=== PATIENT | female | born 1950 | race Caucasian/White ===

== ENCOUNTER → 2017-11-28 | Outpatient (CLI) | payer OTHER, BC | LOC: BRMIMAGING 14:38 | PROVIDERS: ATTEND Internal Medicine | DX: Z12.31 Encounter for screening mammogram for malignant neoplasm of breast (principal) ==

== ENCOUNTER → 2018-12-04 | Outpatient (CLI) | payer OTHER, BC | LOC: BRMIMAGING 11:23 | PROVIDERS: ATTEND Internal Medicine | DX: Z12.31 Encounter for screening mammogram for malignant neoplasm of breast (principal) ==

== ENCOUNTER 2019-01-19 19:37 | Emergency (ER) | payer OTHER, BC ==
[2019-01-20 00:15] VITALS: BP 127/84
--- NOTE | 2019-01-20 00:15 | EDPHY ---
H & P Stated Complaint: Cold symptoms, fatigue, R ear pain x 1-2 weeks Time Seen by Provider: 01/19/19 20:33 HPI/ROS: CHIEF COMPLAINT: Cough and run down all week, dry cough HISTORY OF PRESENT ILLNESS: 68-year-old female with known history of diabetes has had a dry cough for approximately 1 week. The daughter who is my interpreter deaf does not believe she has had the influenza vaccination. There has been quite a few people coming and going there is no quite a certainty as to whether she has been exposed to anything or not. There is a 4-year-old grandchild at home but she is feeling well without any symptoms. With this cough she feeling somewhat run down but is not had a fever that the family has been able to ascertain however they did not check. Strictly tactile in nature. The been no nausea vomiting or diarrhea. She has no chest pain or shortness of breath or phlegm. She is here today as she is quite run down and was not getting better. Evidently she has recurring fever blisters to the left side of the lip, just left of midline. This is been there for some 7 days REVIEW OF SYSTEMS: Constitutional: No fever, no chills. Eyes: No discharge ENT: No sore throat. Cardiovascular: No chest pain, no palpitations. Respiratory: See above Gastrointestinal: No Nausea, vomiting, abdominal pain or diarrhea Genitourinary: No hematuria or frequency. Musculoskeletal: No back pain. Skin: No rashes. Neurological: No headache. A 10 system review of systems was performed and is negative except for the noted findings in the HPI. Source: Patient Exam Limitations: Language barrier - Personal History Current Tetanus/Diphtheria Vaccine: Yes Current Tetanus Diphtheria and Acellular Pertussis (TDAP): Yes Tetanus Vaccine Date: unsure - Medical/Surgical History Hx Asthma: No Hx Chronic Respiratory Disease: No Hx Diabetes: Yes Hx Cardiac Disease: No Hx Renal Disease: No Hx Cirrhosis: No Hx Alcoholism: No Hx HIV/AIDS: No Hx Splenectomy or Spleen Trauma: No Other PMH: Type II DM, L knee sx ~2014 - Social History Smoking Status: Never smoked Alcohol Use: None Drug Use: None - Physical Exam Exam: General Appearance: Alert, no distress. Afebrile. Normal phonation. No respiratory distress. Eyes: Pupils equal and round no pallor or injection. No icterus ENT, Mouth: Mucous membranes slightly dry Pharynx without erythema or exudate. TM Clear. There is a crack from the old fever blister on the left side of the lip. There is a 2 cm mass present on the right that is compatible with a note however is smooth and mobile without specific tenderness. It is notably much larger than the rest and requires follow-up as I told the family Neck: Supple. No JVD. Trachea in midline. Respiratory: There are no retractions, lungs are clear to auscultation. Good aeration. Cardiovascular: Regular rate and rhythm. No murmur Abdomen: Soft and nontender, no masses, bowel sounds normal. Neurological: Ox3. No motor weakness. Sensation intact. Gait nl. Skin: Warm and dry, no rashes. Musculoskeletal: No joint swelling. Extremities: No edema. Homans sign negative. No cords. Psychiatric: Normal affect. Patient is oriented X 3. There is no agitation Constitutional: Initial Vital Signs Temperature (C) 37.1 C 01/19/19 19:51 Heart Rate 90 01/19/19 19:51 Respiratory Rate 18 01/19/19 19:51 Blood Pressure 135/80 H 01/19/19 19:51 O2 Delivery Mode Room Air Allergies/Adverse Reactions: No Known Allergies Allergy (Verified 01/19/19 20:13) Home Medications: Medication Instructions Recorded Multivitamins [Multivitamin (*)] 1 each PO DAILY 05/23/14 metFORMIN HCL [Glucophage 500 mg 500 mg PO DAILY@18 #0 tab 05/24/14 (*)] Medical Decision Making - Diagnostics EKG Interpretation: EKG: Interpreted by me contemporaneously. Rhythm: Normal sinus rhythm. Heart rate 78 QTc 456 QRS: normal STT segment: Mild ST elevation V2 through V5 3 compatible with early repolarization. TN intervals depressed but no other signs to suggest pericarditis T Waves: See above Q waves none Summary: Equivocal EKG. As she segment elevation verses earlier palsy glass V2 through V3. There is also TN interval depression seen in V2 and V3. ED Course/Re-evaluation: The patient was remarkably well for someone has been sick for a week with dry cough. As she did not have the seasonal influenza vaccination, we tested her for influenza, it came back positive for A , the predominant strain we have seen this year. However I continue the workup in view of the EKG changes and her age. Certainly the presentation of fatigue and a diabetic might be underlying coronary disease thus we did check the troponin levels which were normal as noted below as well as evidence for diabetic stability which indeed was the case. The chest x-ray was compatible with chronic changes as well as atelectasis but did not show any signs of CHF. What seemed to be prominence of the zachariah turned out to be granulomatous changes as interpreted by the radiologist. Laboratory studies included: WBC normal at 7 Hemoglobin low at 11.1 however that is her norm. Creatinine is bumped up from 0.6 to 0.9 thus the family be encouraged to take more fluids. Her electrolytes were otherwise stable Troponin normal at 0.00 There was a plan to obtain a BNP in view of her chest x-ray changes, however the x-ray report by the radiologist does not suggest CHF, but instead bilateral hilar changes of granulomatous disease, the to 1st gave me the concern for hilar prominence of CHF. As to the influenza, its long past the time frame where Tamiflu might have some influence of the clinical course. Although she does remain somewhat contagious. I have discussed the case with her and he himself has mild diabetes but besides arthritis as well. He also did receive the vaccination. I discussed the case with her daughter, a physician, anesthesiologist, and [place]. Differential Diagnosis: Diagnostic considerations include, but are not limited to, the following: URI, sinusitis, pharyngitis, otitis media, pneumonia, allergy, influenza, strep throat, ACS, CHF, anemia. - Data Points Point of Care Test Results: CBC CBC Collection Date 01/19/19 CBC Collection Time 20:40 WBC 5.09 RBC 5.84 HGB 11.5 HCT 36.2 PLT 160 Neut # 1.87 Neut 36.7 LYMPH # 2.56 LYMPH 50.3 MCV 62 Chemistry 01/19/19 01/19/19 21:07 21:04 POC Sodium 141 mEq/L mEq/L (135-145) POC Potassium 3.8 mEq/L mEq/L (3.3-5.0) POC Chloride 102.0 mEq/L mEq/L (97-110) POC Total CO2 29 mEq/L mEq/L (22-31) POC BUN 13 mg/dL mg/dL (7-23) POC Creatinine 0.9 mg/dL mg/dL (0.6-1.0) POC Glucose 101 mg/dL H mg/dL (70-100) POC Calcium 9.8 mg/dL mg/dL (8.5-10.4) POC Troponin I 0.00 ng/mL ng/mL (0.00-0.08) Blood Gas/Lactic Acid-Venous 01/19/19 21:08 POC Lactic Acid Fritz 2.0 mmol/L mmol/L (0.7-2.1) Influenza PCR Flu Nasal Swab Collection Date 01/19/19 Flu Nasal Swab Collection Time 20:25 Influenza A Result Detected Influenza B Result Not Detected Departure - Departure Disposition: Home, Routine, Self-Care Clinical Impression: Influenza A, Glandular swelling, R neck Condition: Good Instructions: Influenza (ED) Additional Instructions: Laboratory studies showed you of influenza. This is very contagious that she should stay home and not go out until next Monday. To call your family physician this Monday to verify with you had the influenza vaccine this fall or not. If not then you should be able to get the vaccine later this week You're chemistry values did show a somewhat low kidney function. This represents dehydration, so take extra fluids such as Gatorade hopefully 3 such 20 oz Gatorade daily Though you have the evidence of the old fever blister on the left side of the lip, there is a notable glandular swelling to the right that should be checked by her family doctor later this week Referrals: Letitia Tam MD [Primary Care Provider] - As per Instructions
--- NOTE | 2019-01-20 00:19 | CPEKG ---
Test Reason : OPEN Blood Pressure : / mmHG Vent. Rate : 078 BPM Atrial Rate : 078 BPM P-R Int : 196 ms QRS Dur : 089 ms QT Int : 400 ms P-R-T Axes : 038 064 049 degrees QTc Int : 456 ms Sinus rhythm Probable left atrial enlargement Minimal ST elevation, anterior leads vs early repolarization Confirmed by Lexx Wang ([id number]) on 01/20/2019 12:19:24 AM Referred By: Lexx Wang Confirmed By:Lexx Wang
== END 2019-01-20 00:58 | disposition home or self-care (01) ==
LOC: CED 19:37
DX: J10.1 Influenza due to other identified influenza virus with other respiratory manifestations (principal); R59.9 Enlarged lymph nodes, unspecified; E11.9 Type 2 diabetes mellitus without complications
CPT/HCPCS: 71046-PO; 80048-ER; 83605-ER; 84484-ER; 85025-QW-ER; 87400-QW-ER; 99285-ER